=== PATIENT | female | born 1990 | race Caucasian/White ===

== ENCOUNTER → 2017-04-01 | Outpatient (CLI) | payer OTHER | END | disposition home or self-care (01) | LOC: CFH 13:37 | PROVIDERS: ATTEND Specialist | DX: M25.461 Effusion, right knee (principal); M08.3 Juvenile rheumatoid polyarthritis (seronegative) ==

== ENCOUNTER → 2018-05-07 | Outpatient (CLI) | payer OTHER ==
[~2018-05-07] MED LIST: Birth Control PO; FOLI0.8T2 PO; METH2.5T PO
[2018-05-07 12:25] LABS: MICROSCOPIC NOT IND
[2018-05-07 12:29] LABS: CULTURE INDICATED? NO
== END | disposition home or self-care (01) ==
LOC: STAR 11:41
PROVIDERS: ATTEND Orthopaedic Surgery
DX: Z01.818 Encounter for other preprocedural examination (principal); M06.9 Rheumatoid arthritis, unspecified; M65.861 Other synovitis and tenosynovitis, right lower leg
CPT/HCPCS: 81003